=== PATIENT | female | born 1975 | race Caucasian/White ===

== ENCOUNTER 2018-08-25 05:50 | Inpatient (IN) | payer BC ==
[~2018-08-25] VITALS: Ht 162.6 cm; Wt 68.0 kg
[2018-08-25] MEDS ORDERED: LR 1,000 ML IV SCH (08:58)
[2018-08-25] MEDS ORDERED: HYDROmorphone 1 MG INJ. 1 MG/ML AMPUL IVP PRN (09:00)
[2018-08-25] MEDS ORDERED: MEPERIDINE HCL/PF 25 MG/ML DISP.SYRIN IVP PRN (09:00)
[2018-08-25] MEDS ORDERED: HYDROmorphone 2 MG/ML VIAL IVP PRN ×2 (09:00)
[2018-08-25] MEDS ORDERED: SIMETHICONE 80 MG TAB.CHEW PO PRN (09:45)
[2018-08-25] MEDS ORDERED: ROPIVACAINE HCL/PF 5 MG/ML 0.5% 30 ML VIAL ONE (09:50)
[2018-08-25] MEDS ORDERED: KETOROLAC TROMETHAMINE 30 MG VIAL ONE (09:50)
[2018-08-25] MEDS ORDERED: ONDANSETRON HCL 4 MG/2 ML VIAL ONE (09:50)
[2018-08-25] MEDS ORDERED: DEXAMETHASONE SOD PHOSPHATE 4 MG/ML VIAL ONE (09:50)
[2018-08-25] MEDS ORDERED: NS IRRIG SOLN 1000 ML IR ONE (09:50)
[2018-08-25] MEDS ORDERED: LR 1,000 ML IV.SOLN IV ONE (09:50)
[2018-08-25] MEDS ORDERED: fentaNYL CITRATE/PF 100 MCG/2 ML AMP ONE (09:50)
[2018-08-25] MEDS ORDERED: PROPOFOL 200MG/ 20ML VIAL (DIPRIVAN) IV ONE (09:50)
[2018-08-25] MEDS ORDERED: CEFAZOLIN 2 GM IVPB PREMIX 50 ML IV ONE (09:50)
[2018-08-25] MEDS ORDERED: SEVOFLURANE 15 MIN GAS INH ONE (09:50)
[2018-08-25] MEDS ORDERED: MIDAZOLAM HCL 5 MG/ML VIAL (VERSED) IV ONE (09:50)
[2018-08-25] MEDS ORDERED: fentaNYL CITRATE 250 MCG/5 ML AMP ONE (09:50)
[2018-08-25] MEDS ORDERED: ROCURONIUM BROMIDE 10 MG/ML (ZEMURON) ONE (09:50)
[2018-08-25] MEDS ORDERED: HYDROmorphone 2 MG/ML VIAL ONE (10:34)
[2018-08-25] MEDS ORDERED: HYDROmorphone 1 MG INJ. 1 MG/ML AMPUL ONE (10:56)
[2018-08-25] MEDS: LR 1,000 ML IV SCH ×2 (11:00→16:47)
--- NOTE | 2018-08-25 11:05 | NUR ---
Admit Note: Received patient from OR, report from Thuy BENTON. Patient in bed resting, responsive and awake. Patient denies pain and discomfort at this time. Breathing is even and unlabored with no distress noted. IV patent and intact running LR @ 125 ml/hr per MD orders, no signs of infiltration. Hamilton catheter patent and intact with visible urine output. Lower abdominal dressing clean, dry and intact. Incentive spirometer at bedside and patient verbalized understanding of use. Inhaled [address] Hailey-pad clean, no signs of bleeding. Vital signs stable BP 135/81, O2 sat 98%, HR 71, RR 16, afebrile. Safety precautions in place; bed in lowest position, wheels locked, side rails x3, bed alarm activated and call light within reach. No needs at this time. Will continue to monitor.
[2018-08-25 11:34] VITALS: BP_SYST 135
--- NOTE | 2018-08-25 13:50 | NUR ---
Rounds: Patient in bed asleep, family at bedside. No SOB or respiratory distress noted. No signs of pain or discomfort, will assess when patient wakes up. Safety precautions in place and call light within reach. Will continue to monitor. Addendum: 08/25/18 at 1407 by Jany Dean RN Patient medicated for 5/10 pain. Will reassess.
[2018-08-25 13:59] VITALS: BP_SYST 139
[2018-08-25] MEDS: OXYCODONE/ACETAMINOPHEN 5-325 TABLET PO PRN ×3 (14:00→21:03)
[2018-08-25] MEDS: ONDANSETRON HCL 4 MG/2 ML VIAL IVP PRN ×2 (15:53→22:51)
--- NOTE | 2018-08-25 16:00 | NUR ---
Rounds: Patient in bed resting. Denies pain and discomfort. Medicated for nausea, will reassess. No signs of bleeding. IVF infusing with no signs of infiltration. Safety precautions in place and call light within reach. No needs at this time. Will continue to monitor.
[2018-08-25 16:12] VITALS: BP_SYST 139
--- NOTE | 2018-08-25 18:38 | NUR ---
Closing Note: Patient in bed resting, responsive and awake, family at bedside. Patient medicated for pain, will reassess. Breathing is even and unlabored with no distress noted. Patient denies nausea at this time. IV patent and intact running LR @ 125 ml/hr per MD orders, no signs of infiltration. Hamilton catheter patent and intact with visible urine output. Lower abdominal dressing clean, dry and intact. Ice pack placed over incision site. Incentive spirometer at bedside and patient verbalized understanding of use. SCD's in place. Safety precautions in place; bed in lowest position, wheels locked, side rails x3, bed alarm activated and call light within reach. All needs met. Will endorse plan of care to NOC, nurse.
[2018-08-25 20:20] VITALS: BP_SYST 143
--- NOTE | 2018-08-25 20:20 | NUR ---
INITIAL NOTES: BEDSIDE REPORT DONE FROM AM RN. PATIENT IN BED WITH EYES CLOSE. OPENS EYES SLOWLY WHEN CALLED HER NAME. IVF INFUSING WELL TO RT. AC, SITE CLEAR. HAS TOLERABLE POST OP PAIN. VITAL SIGNS TAKEN. ICEPACK PLACED OVER POST OP SITE , HAS OLD BLOOD ON DRESSING UNDER TAPE.ABDOMEN TENDER TO TOUCH. ON SCD. VILLALOBOS PATENT DRAINING CLEAR ANGY URINE. WILL MONITOR CLOSELY FOR BLEEDING.
[2018-08-25] MEDS ORDERED: TEMAZEPAM 15 MG CAPSULE PO PRN (21:00)
[2018-08-25] MEDS ORDERED: SENNOSIDES/DOCUSATE SODIUM 1 TAB TABLET(SENOKOT-S) PO PRN ×2 (21:00)
--- NOTE | 2018-08-25 21:10 | NUR ---
PAIN: PATIENT COMPLAIN OF POST OP ABDOMINAL PAIN. PERCOCET PO GIVEN .
--- NOTE | 2018-08-25 21:40 | NUR ---
SEEN DOING HER INCENTIVE SPIROMETER UP TO 2000ML X6.
--- NOTE | 2018-08-25 22:50 | NUR ---
PAIN; still complain of pain. 2 tabs percocet not due. motrin 800 mg po given.
[2018-08-25] MEDS: IBUPROFEN 800 MG TABLET PO PRN (22:51)
--- NOTE | 2018-08-25 23:05 | NUR ---
DANGLE LEGS: ASSISTED PT. TO DANGLE LEGS FOR 20MINS. TOLERATED WELL.
--- NOTE | 2018-08-25 23:25 | NUR ---
ABDOMINAL BINDER PLACE FOR COMFORTS.
--- NOTE | 2018-08-25 23:50 | NUR ---
VILLALOBOS OUTPUT: URINE OUTPUT IN 4 HRS IS 475ML/ CLEAR LIGHT ANGY COLOR.
[2018-08-26 00:18] VITALS: BP_SYST 134
--- NOTE | 2018-08-26 01:30 | NUR ---
ROUNDS: NEW IV BAG HANG. LOOSEN ABDOMINAL BINDER FOR COMFORT. CONTINUE ICE PACK OVER POST OPSITE.
[2018-08-26] MEDS: LR 1,000 ML IV SCH ×3 (01:31→17:34)
[2018-08-26] MEDS: OXYCODONE/ACETAMINOPHEN 5-325 TABLET PO PRN ×3 (04:04→18:57)
--- NOTE | 2018-08-26 04:05 | NUR ---
PAIN: COMPLIN OF POST OP ABDOMINAL PAIN. PERCOCET 2 TABS PO GIVEN. ICE PACK PLACED OVER POST OP INCISION.
[2018-08-26 06:25] LABS: HEMATOCRIT 32.8 % (36-48)
--- NOTE | 2018-08-26 06:40 | NUR ---
CLOSING: VILLALOBOS CATHETER REMOVED AFTER DEFLATING BALLOON. TIP INTACT. IVF DISCONTINUED ORDERED.PAIN FAIRLY CONTROLLED BY PERCOCET. PO.
--- NOTE | 2018-08-26 07:04 | NUR ---
Nutrition Update Gallito Scale 18 noted. Pt admitted for Hypertrophy of Uterus Diet: clear liquid diet BMI: 25.7 kg/m2 RD to follow per nutrition care standards.
[2018-08-26 08:03] VITALS: BP_SYST 134
--- NOTE | 2018-08-26 08:05 | NUR ---
OPENING NOTE patient received resting in bed A&O x4, patient states she is having 4/10 pain at this time, patient denies any other acute distress, breathing is even and unlabored on room air, educated patient on plan of care and call light system, assisted patient to use bathroom and patient had first void post shay d/c, patient ambulated around the hallway with steady gait, will continue to monitor, safety precautions in place, call light within reach.
--- NOTE | 2018-08-26 10:32 | NUR ---
NOTES patient is resting in bed watching tv, breathing is even and unlabored on room air, patient denies any acute distress, pain is controlled at this time, will continue to monitor, safety precautions in place, call light within reach.
[2018-08-26 12:03] VITALS: BP_SYST 132
--- NOTE | 2018-08-26 12:27 | NUR ---
NOTES patient is resting in bed A&O x4, assisted patient to bathroom, patient denies any acute distress or pain , breathing is even and unlabored on room air, patient tolerating diet well with no n/v, will continue to monitor, safety precautions in place, call light within reach.
[2018-08-26] MEDS: IBUPROFEN 800 MG TABLET PO PRN (12:44)
--- NOTE | 2018-08-26 14:39 | NUR ---
NOTES patient is ambulating around the unit with steady gait at this time, no acute distress or pain is noted, will continue to monitor, safety precautions in place.
[2018-08-26 16:00] VITALS: BP_SYST 155
--- NOTE | 2018-08-26 16:45 | NUR ---
NOTES PATIENT AMBULATING AROUND FLOOR AT THIS TIME, NO ACUTE DISTRESS, WILL CONTINUE TO MONITOR, SAFETY PRECAUTIONS IN PLACE.
--- NOTE | 2018-08-26 19:03 | NUR ---
CLOSING NOTE patient is resting in bed awaiting discharge, pain is controlled at this time, all needs were met throughout shift, will endorse report to oncoming nurse, safety precautions in place, call light within reach.
[2018-08-26 19:07] VITALS: BP_SYST 155
== END 2018-08-26 20:22 | disposition home or self-care (01) | DRG 743 ==
LOC: SMU 05:50
PROVIDERS: ADMIT Obstetrics & Gynecology; ATTEND Obstetrics & Gynecology
PROC: 0UT70ZZ Resection of Bilateral Fallopian Tubes, Open Approach (ICD-10-PCS; 2018-08-25)
PROC: 0UT90ZZ Resection of Uterus, Open Approach (ICD-10-PCS; principal; 2018-08-25 07:30)
DX: D25.9 Leiomyoma of uterus, unspecified (principal); N85.2 Hypertrophy of uterus; Z80.3 Family history of malignant neoplasm of breast; Z83.438 Family history of other disorder of lipoprotein metabolism and other lipidemia; Z82.5 Family history of asthma and other chronic lower respiratory diseases; Z01.810 Encounter for preprocedural cardiovascular examination; Z88.2 Allergy status to sulfonamides
CPT/HCPCS: 36415; 85018-TC; 86886; 86900; 86901; 87081; 88307; J0690; J1100; J1170; J1885; J2250; J2405; J2704; J3010; J7120